=== PATIENT | male | born 1975 | race Hispanic/Latino ===

== ENCOUNTER → 2021-08-09 | Outpatient (CLI) | payer BC | END | disposition home or self-care (01) | LOC: RAH 15:05 | PROVIDERS: ATTEND Family Medicine | DX: M79.662 Pain in left lower leg (principal) | CPT/HCPCS: 93971 ==

== ENCOUNTER 2023-06-06 03:56 | Emergency (ER) | payer BC ==
[~2023-06-06] VITALS: Ht 175.3 cm; Wt 96.2 kg
[2023-06-06 04:42] LABS: BASOPHILS # (AUTO) 0.04 K/uL (0.00-0.20); BASOPHILS % (AUTO) 0.6 % (0.0-5.0); EOSINOPHILS # (AUTO) 0.18 K/uL (0.00-0.70); EOSINOPHILS % (AUTO) 2.6 % (0.0-8.0); HEMATOCRIT 43.8 % (42-54); IMMATURE GRANULOCYTE ABSOLUTE 0.02 K/uL (0-1); LYMPHOCYTES # (AUTO) 2.2 K/uL (1.0-4.8); LYMPHOCYTES % (AUTO) 31.5 % (21.0-51.0); MEAN CORPUSCULAR HEMOGLOBIN 28.3 pg (27.0-33.0); MEAN CORPUSCULAR HGB CONC 34.2 g/dL (32.0-36.0); MEAN CORPUSCULAR VOLUME 82.6 fL (79-99); MONOCYTES # (AUTO) 0.7 K/uL (0.1-1.0); MONOCYTES % (AUTO) 9.5 % (3.0-13.0); NEUTROPHILS # (AUTO) 3.9 K/uL (1.8-7.7); NEUTROPHILS % (AUTO) 55.5 % (40.0-77.0); PLATELET COUNT (AUTO) 244 K/uL (130-400); RED CELL DISTRIBUTION WIDTH 12.1 % (11.0-15.5); WHITE BLOOD COUNT (AUTO) 7.1 K/uL (4.8-10.8)
[2023-06-06 04:53] LABS: CREATININE 0.7 mg/dL (0.5-1.5); POTASSIUM 3.6 mmol/L (3.5-5.1)
[2023-06-06 04:55] LABS: ALBUMIN 3.2 g/dL (3.5-5.0); BILIRUBIN,TOTAL 0.4 mg/dL (0.2-1.0); TOTAL PROTEIN, SERUM 6.8 g/dL (6.0-8.3)
[2023-06-06] MEDS ORDERED: HYDRALAZINE 20MG/ML VIAL IV ONE (05:30)
[2023-06-06 06:08] VITALS: PULSE 86; RESP 18; O2SAT 99
[2023-06-06] MEDS ORDERED: ENAL20TA60 PO (06:51)
[2023-06-06] MEDS ORDERED: METF500S9 PO (06:51)
[2023-06-06 07:27] VITALS: BP 159/89
== END 2023-06-06 07:29 | disposition home or self-care (01) ==
LOC: EDH 03:56
DX: I10 Essential (primary) hypertension (principal); E11.9 Type 2 diabetes mellitus without complications; E78.00 Pure hypercholesterolemia, unspecified
CPT/HCPCS: 99284; 96374; 71045; 84484; 80053; 85025; 36415; 93005; J0360